=== PATIENT | female | born 1985 | race American Indian/Alaskan Native ===

== ENCOUNTER 2017-09-04 11:24 | Inpatient (IN) | payer OTHER ==
[2017-09-04] MEDS ORDERED: BRETHINE SUB-Q PRN (13:25)
[2017-09-04] MEDS ORDERED: CERVIDIL VG ONE (13:25)
[2017-09-04] MEDS ORDERED: SUBLIMAZE IV PRN (13:25)
[2017-09-04] MEDS ORDERED: STADOL IV PRN (13:25)
[2017-09-04] MEDS ORDERED: ePHEDrine SULFATE IV PRN (13:25)
[2017-09-04] MEDS ORDERED: BRETHINE IVP PRN (13:25)
[2017-09-04] MEDS ORDERED: PHENERGAN PO PRN (13:25)
[2017-09-04] MEDS ORDERED: XYLOCAINE 2% INFILTRATI ONE (13:25)
[2017-09-04] MEDS ORDERED: AMBIEN PO PRN (13:25)
[2017-09-04] MEDS ORDERED: MINERAL OIL PO PRN (13:25)
[2017-09-04] MEDS ORDERED: ZOFRAN IV PRN (13:25)
[2017-09-04] MEDS ORDERED: PITOCin/NS 30 UNIT/500ML 30 UNITS/500 ML BAG IV SCH ×2 (14:00)
--- NOTE | 2017-09-04 14:07 | History and Physical Report ---
History of Present Illness Date of examination: 09/04/17 Date of admission: 09/04/17 11:24 History of present illness: 31 yo LMO EDC 08/30/17 @ 40.5 weeks gestation, presented to office for testing, BPP/SAGE and U/S was 10/06. Sent for induction of labor. Reactive NST in office two prior. Voiced decreased FM this am. First trimester entry into care at 7 weeks gestation. course complicated by Low lying placenta with U/S resolution 06/12. She is GBS negative. Experienced recent of her father 08/20/17 Past History Past Medical History: no pertinent history Past Surgical History: no surgical history Family/Genetic History: diabetes, heart disease Social history: no significant social history - Obstetrical History Expected Date of Delivery: 08/30/17 Actual Gestation: 40 Week(s) 6 Day(s) : 1 Medications and Allergies Allergies Allergy/AdvReac Type Severity Reaction Status Date / Time No Known Allergies Allergy Unverified 09/04/17 14:05 Home Medications Medication Instructions Recorded Confirmed Last Taken Type Multivitamin Tablet 1 tab PO DAILY 09/04/17 09/04/17 09/03/17 22:00 History Active Meds: Active Medications Butorphanol Tartrate (Stadol) 2 mg IV Q2H PRN PRN Reason: Pain , Severe (7-10) Dinoprostone (Cervidil) 10 mg VG ONCE ONE Stop: 09/04/17 13:26 Ephedrine Sulfate (Ephedrine Sulfate) 10 mg IV Q2M PRN PRN Reason: Hypotension Fentanyl (Sublimaze) 100 mcg IV Q2H PRN PRN Reason: Labor Pain Lactated Ringer's (Lactated Ringers) 1,000 mls @ 125 mls/hr IV DIRECT ARLEN Oxytocin/Sodium Chloride (Pitocin/Ns 20 Unit/1000ml Drip) 20 units in 1,000 mls @ 125 mls/hr IV DIRECT ARLEN Oxytocin/Sodium Chloride (Pitocin/Ns 30 Unit/500ml) 30 units in 500 mls @ 1 mls /hr IV TITR ARLEN; Protocol Oxytocin/Sodium Chloride (Pitocin/Ns 30 Unit/500ml) 30 units in 500 mls @ 4 mls /hr IV TITR ARLEN; Protocol Lidocaine (Xylocaine 2%) 20 ml INFILTRATI ONCE ONE Stop: 09/04/17 13:26 Mineral Oil (Mineral Oil) 30 ml PO QHS PRN PRN Reason: Constipation Ondansetron HCl (Zofran) 4 mg IV Q8H PRN PRN Reason: Nausea And Vomiting Promethazine HCl (Phenergan) 25 mg PO Q6H PRN PRN Reason: Nausea And Vomiting Terbutaline Sulfate (Brethine) 0.25 mg SUB-Q ONCE PRN PRN Reason: Hyperstimulation/Hypertonicity Terbutaline Sulfate (Brethine) 0.25 mg IVP ONCE PRN PRN Reason: Hyperstimulation/Hypertonicity Zolpidem Tartrate (Ambien) 10 mg PO QHS PRN PRN Reason: Insomnia Review of Systems All systems: negative - Vital Signs Vital signs: Vital Signs Temp Pulse Resp BP Pulse Ox 98.4 F 99 H 16 120/71 100 09/04/17 13:34 09/04/17 13:34 09/04/17 13:34 09/04/17 13:34 09/04/17 13:34 Temp Pulse Resp BP Pulse Ox 98.4 F 99 H 16 120/71 100 09/04/17 13:34 09/04/17 13:34 09/04/17 13:34 09/04/17 13:34 09/04/17 13:34 - Physical Exam Breasts: Positive: normal Abdomen: Positive: normal appearance Genitourinary (Female): Positive: normal external genitalia, normal perenium - Obstetrical FHR: category 1 Uterine Contraction Monitor Mode: External Cervical Dilatation: 0 Cervical Effacement Percentage: 60 station: -3 Uterine Contraction Frequency (min): 2-6 Uterine Contraction Pattern: Irregular Uterine Tone Measurement Phase: Resting Uterine Contraction Intensity: Mild Results Result Diagrams: 09/04/17 Unknown All other labs normal. Assessment and Plan A: IUP at 40.5 weeks gestation Unfavorable BPP 4/8 Reactive NST/Category 1 tracing Unfavorable cervix EFW 8lbs P: MD Higuera Induction-Cervidil
[2017-09-04 14:25] LABS: Hematocrit 33.6 % (30.3-42.9); Mean Corpuscular HGB Conc 33 % (30-34); Mean Corpuscular Hemoglobin 27 pg (28-32); Mean Corpuscular Volume 82 fl (79-97); Red Blood Count 4.09 M/mm3 (3.65-5.03); Red Cell Distribution Width 15.7 % (13.2-15.2)
[2017-09-04 15:24] LABS: Platelet Count 183 K/mm3 (140-440)
[2017-09-04] MEDS: LACTATED RINGERS 1,000 ML IV SCH (16:40)
[2017-09-05] MEDS: LACTATED RINGERS 1,000 ML IV SCH
[2017-09-05] MEDS ORDERED: NACL 0.9% 1000 ML 1,000 ML ONE (07:25)
[2017-09-05] MEDS ORDERED: ePHEDrine SULFATE IV PRN (07:28)
[2017-09-05] MEDS ORDERED: NARCAN 2 MG/2 ML IV PRN (07:28)
--- NOTE | 2017-09-05 07:28 | Anesthesia Consultation ---
Anesthesia Consult and Med Hx Date of service: 09/05/17 - Airway Anesthetic Teeth Evaluation: Good ROM Head & Neck: Adequate Mental/Hyoid Distance: Adequate Mallampati Class: Class II Intubation Access Assessment: Probably Good - Pre-Operative Health Status ASA Pre-Surgery Classification: ASA2 Proposed Anesthetic Plan: Epidural - Pulmonary Hx Asthma: No COPD: No Hx Pneumonia: No - Cardiovascular System Hx Hypertension: No - Central Nervous System Hx Seizures: No Hx Psychiatric Problems: No - Endocrine Hx Renal Disease: No Hx End Stage Renal Disease: No Hx Hypothyroidism: No Hx Hyperthyroidism: No - Hematic Hx Anemia: No Hx Sickle Cell Disease: No
[2017-09-05] MEDS ORDERED: fentaNYL-BUPIV 2 MCG/ML-0.125% 200 MCG/100 ML BAG EPIDURAL SCH (08:00)
[2017-09-05] MEDS ORDERED: NACL 0.9% 1000 ML 1,000 ML IV SCH (08:00)
--- NOTE | 2017-09-05 08:45 | Progress Note ---
Assessment and Plan A: IUP at 40.6 weeks gestation Active Labor Epidural insitu P: Continue Pitocin induction-active leslie't Subjective - Subjective Date of service: 09/05/17 Interval history: 31 yo LMO EDC 08/30/17 @ 40.5 weeks gestation, presented to office for testing, BPP/SAGE and U/S was 4/8. Sent for induction of labor. Reactive NST in office two prior. Voiced decreased FM this am. First trimester entry into care at 7 weeks gestation. course complicated by Low lying placenta with U/S resolution 06/12. She is GBS negative. Experienced recent of her father 08/20/17 Patient reports: movement normal, contractions, no new complaints, no vaginal bleeding Objective - Vital Signs Vital Signs: Vital Signs - 12hr 09/05/17 09/05/17 04:54 07:13 Temperature 97.4 F L Respiratory 18 18 Rate - Exam Breasts: deferred Abdomen: Present: normal appearance Uterus: Present: normal FHR: category 1 Uterine Contraction Monitor Mode: External Cervical Dilatation: 6 Cervical Effacement Percentage: 80 station: -2 Uterine Contraction Frequency (min): 2-4 Uterine Contraction Pattern: Regular Uterine Tone Measurement Phase: Resting Uterine Contraction Intensity: Moderate - Labs Labs: Abnormal Labs 09/04/17 Unknown MCH 27 L RDW 15.7 H Laboratory Results - last 24 hr 09/04/17 09/04/17 09/04/17 12:15 Unknown Unknown WBC 6.5 RBC 4.09 Hgb 11.0 Hct 33.6 MCV 82 MCH 27 L MCHC 33 RDW 15.7 H Plt Count 183 RPR Nonreactive Blood Type O POSITIVE Antibody Screen Negative
--- NOTE | 2017-09-05 10:08 | Event Note ---
Date: 09/05/17 Pt with deep variables to 60-70 with contractions. IUPC placed. Cervix /-. Will attempt amnioinfusion. Closely monitor maternal and status.
[2017-09-05] MEDS: PITOCin/NS 20 UNIT/1000ML DRIP 20 UNITS/1,000 ML BAG IV SCH ×2 (12:32→14:35)
[2017-09-05] MEDS ORDERED: BENADRYL PO PRN (13:05)
[2017-09-05] MEDS ORDERED: TYLENOL PO PRN (13:05)
[2017-09-05] MEDS ORDERED: PHENERGAN PO PRN (13:05)
[2017-09-05] MEDS ORDERED: LANSINOH TP PRN (13:05)
[2017-09-05] MEDS ORDERED: MILK OF MAGNESIA PO PRN (13:05)
[2017-09-05] MEDS ORDERED: DULCOLAX PR PRN (13:05)
[2017-09-05] MEDS ORDERED: PHENERGAN PR PRN (13:05)
[2017-09-05] MEDS ORDERED: TUCKS PAD TP PRN (13:05)
[2017-09-05] MEDS ORDERED: NORCO 5/325 PO PRN (13:05)
--- NOTE | 2017-09-05 13:05 | Procedure Note ---
OB Delivery Note - Delivery Date of Delivery: 09/05/17 (7-1.oz male @ 1232) Surgeon: CHINYERE MARTINEZ Estimated blood loss: 300cc - Vaginal Delivery presentation: vertex Delivery position: OA Intrapartum events: none Delivery induction: cervidil Delivery augmentation: rupture of membranes, pitocin Delivery monitor: external FHT, external uterine Route of delivery: Delivery placenta: spontaneous Delivery cord: nuchal cord (loose NC x 1 ), 3 umbilical vessels Delivery laceration: none, other (left bartholian cyst, I&D) Anesthesia: epidural - Infant A at 1 minute: 8 at 5 minutes: 9 Gender: Male ( viable male, in OA position. Dried and bulb suctioned, placed skin to skin. Spont placenta, delayed cord cutting. Cord blood collected. No lacerations, I&D of left bartholian cyst.)
[2017-09-05] MEDS ORDERED: SODIUM CHLORIDE FLUSH SYRINGE 10 ML IV NR (14:00)
[2017-09-05] MEDS: MOTRIN PO SCH ×2 (14:33→21:45)
[2017-09-05] MEDS: KEFLEX PO SCH (21:45)
[2017-09-06 05:05] LABS: Hematocrit 27.5 % (30.3-42.9)
[2017-09-06] MEDS: MOTRIN PO SCH ×2 (05:28→12:14)
[2017-09-06] MEDS: KEFLEX PO SCH ×2 (12:16→22:09)
[2017-09-06] MEDS: PRENATAL VITAMIN PO SCH (12:20)
--- NOTE | 2017-09-06 12:20 | Progress Note ---
Assessment and Plan A/P PPD#1 s/p s/p drainage bartholin cyst on kefex 11-9 O+ no rhogam indicated Breast feeding routine orders d/c home tomorrow Subjective - Subjective Date of service: 09/06/17 Principal diagnosis: s/p PPd 1 Bartholin cyst drainage Patient reports: appetite normal, voiding normally, pain well controlled, flatus , ambulating normally : doing well Objective - Vital Signs Latest vital signs: Vital Signs Temp Pulse Resp BP Pulse Ox 09/06/17 08:45 98.8 F 87 20 118/68 09/06/17 00:43 98.9 F 99 H 20 109/62 09/05/17 20:59 98.3 F 84 22 114/62 09/05/17 16:30 98.9 F 86 18 107/63 98 09/05/17 14:04 97.9 F 09/05/17 14:02 93 H 18 106/58 09/05/17 13:47 90 18 115/58 09/05/17 13:32 87 18 122/62 09/05/17 13:17 86 18 127/65 09/05/17 13:02 99 H 18 130/67 09/05/17 12:47 94 H 18 133/73 09/05/17 12:45 98.5 F 18 09/05/17 12:34 110 H 18 125/73 100 09/05/17 12:19 136 H 18 136/98 100 Intake and Output 09/05/17 09/06/17 09/06/17 23:59 07:59 15:59 Intake Total 360 240 120 Output Total 300 Balance 360 -60 120 Intake: Oral 120 120 Intake, Free Water 240 240 Output: Urine 300 Void 300 Other: Total, Intake Amount 120 120 Total, Output Amount 300 # Voids Void 1 1 Estimated Blood Loss 300 - Exam Breasts: Present: normal Cardiovascular: Present: Regular rate, Normal S1 Lungs: Present: Clear to auscultation, Normal air movement Abdomen: Present: normal appearance, normal bowel sounds. Absent: distention, tenderness, guarding Vulva: both: normal Uterus: Present: normal, firm, fundal height below umbilicus. Absent: bogginess , tenderness Extremities: Present: normal Deep Tendon Reflex Grade: Normal +2 - Labs Labs: Abnormal lab results 09/06/17 Range/Units 04:42 Hgb 9.0 L (10.1-14.3) gm/dl Hct 27.5 L D (30.3-42.9) %
[2017-09-07] MEDS: MOTRIN PO SCH ×2 (02:42→10:35)
[2017-09-07] MEDS: KEFLEX PO SCH (10:34)
[2017-09-07] MEDS: PRENATAL VITAMIN PO SCH (10:34)
--- NOTE | 2017-09-07 11:33 | Progress Note ---
Assessment and Plan A/P PPD#2 s/p s/p drainage bartholin cyst on kefex 11-9 O+ no rhogam indicated Breast feeding routine orders d/c home today Subjective - Subjective Date of service: 09/07/17 Principal diagnosis: s/p PPd 1 Bartholin cyst drainage Patient reports: appetite normal, voiding normally, pain well controlled, flatus , ambulating normally Ignacio: doing well Objective - Vital Signs Latest vital signs: Vital Signs Temp Pulse Resp BP BP Pulse Ox 09/07/17 08:06 98.6 F 86 18 118/74 97 09/07/17 00:00 98.6 F 77 16 139/78 09/06/17 16:35 98.6 F 88 20 111/50 Intake and Output 09/06/17 09/07/17 09/07/17 23:59 07:59 15:59 Intake Total 480 300 120 Output Total 400 Balance 80 300 120 Intake: Oral 480 120 Intake, Free Water 300 Output: Urine 400 Void 400 Other: Total, Intake Amount 240 120 Total, Output Amount 400 # Voids Void 1 - Exam Breasts: Present: normal Cardiovascular: Present: Regular rate, Normal S1 Lungs: Present: Clear to auscultation, Normal air movement Abdomen: Present: normal appearance, soft, normal bowel sounds. Absent: distention, tenderness, guarding Vulva: both: normal Uterus: Present: normal, firm, fundal height below umbilicus. Absent: bogginess , tenderness Extremities: Present: normal Deep Tendon Reflex Grade: Normal +2
--- NOTE | 2017-09-07 11:36 | Discharge Summary ---
Providers - Providers Date of Admission: 09/04/17 11:24 Date of discharge: 09/07/17 Attending physician: HEATHER RAMACHANDRAN Primary care physician: HEATHER RAMACHANDRAN Hospitalization Reason for admission: induction of labor Delivery: Episiotomy: none Laceration: none Other procedures: none complications: none Discharge diagnosis: IUP at term delivered baby: male Condition at discharge: Good Disposition: DC-01 TO HOME OR SELFCARE Plan - Discharge Medications Prescriptions: Cephalexin [Keflex] 500 mg PO BID #20 capsule Docusate Sodium [Colace] 100 mg PO BID PRN #30 capsule PRN Reason: Constipation Ferrous Sulfate 325 mg PO BID #30 tablet. Ibuprofen [Motrin] 600 mg PO Q8H PRN #30 tablet PRN Reason: Pain oxyCODONE /ACETAMINOPHEN [Percocet 5/325] 1 tab PO Q6HR PRN #30 tablet PRN Reason: Pain - Provider Discharge Summary Activity: routine, no sex for 6 weeks, no strenuous exercise Diet: routine Instructions: routine Additional instructions: [] Smoking cessation referral if applicable(refer to patient education folder for contact #) [] Refer to [facility] Booklet Call your doctor immediately for: * Fever > 100.5 * Heavy vaginal bleeding ( >1 pad per hour) * Severe persistent headache * Shortness of breath * Reddened, hot, painful area to leg or breast * Drainage or odor from incision. * Keep incision clean and dry at all times and follow doctor's instructions regarding bathing/showering - Follow up plan Follow up: HEATHER RAMACHANDRAN MD [Primary Care Provider] - 10/02/17
[2017-09-07 14:32] VITALS: BP 124/87
== END 2017-09-07 14:45 | disposition home or self-care (01) | DRG 774 ==
LOC: LD 11:24 → OB 09-05 15:34
PROVIDERS: ADMIT Obstetrics & Gynecology; ATTEND Obstetrics & Gynecology
PROC: 10E0XZZ Delivery of Products of Conception, External Approach (ICD-10-PCS; principal; 2017-09-05)
PROC: 3E0P7VZ Introduction of Hormone into Female Reproductive, Via Natural or Artificial Opening (ICD-10-PCS; 2017-09-05)
PROC: 3E0R3BZ Introduction of Anesthetic Agent into Spinal Canal, Percutaneous Approach (ICD-10-PCS; 2017-09-05)
PROC: 00HU33Z Insertion of Infusion Device into Spinal Canal, Percutaneous Approach (ICD-10-PCS; 2017-09-05)
PROC: 0U9LXZZ Drainage of Vestibular Gland, External Approach (ICD-10-PCS; 2017-09-05)
DX: O69.81X0 Labor and delivery complicated by cord around neck, without compression, not applicable or unspecified (principal); O44.43 Low lying placenta NOS or without hemorrhage, third trimester; Z3A.40 40 weeks gestation of pregnancy; Z37.0 Single live birth; O75.89 Other specified complications of labor and delivery; N75.0 Cyst of Bartholin's gland
CPT/HCPCS: 36415; 85014; 85018; 85027; 86592; 86850; 86900; 86901; 99211; G0463; J0595; J2590; J7030; J7120